=== PATIENT | male | born 1940 | race Caucasian/White ===

== ENCOUNTER → 2017-10-05 | Outpatient (CLI) | payer MEDICARE, BC ==
--- NOTE | 2017-10-05 13:19 | Diagnostic Imaging Report ---
PROCEDURE:L-SPINE COMPLETE COMPARISON:None. INDICATIONS:BILATERAL LOWER LEG PAIN FINDINGS: There are 5 nonrib-bearing lumbar-type vertebral bodies. No acute displaced fracture or subluxation. No pars interarticularis defects are identified on the oblique radiographs. Mild degenerative disc changes at L2-3 and L3-4, manifested by endplate sclerosis and marginal osteophytosis. The sacral foramina are intact superiorly. Inferiorly, the sacral body and coccyx are obscured by rectal gas and stool. The sacroiliac joints are intact. CONCLUSION: No acute osseous abnormality. Mild multilevel degenerative disc changes as above. Dictated by: Nain Bello M.D. on 10/05/2017 at 13:20 Electronically approved by: Nain Bello M.D. on 10/05/2017 at 13:20
== END ==
LOC: RAD 12:06
PROVIDERS: ATTEND Family Medicine
DX: M54.5 Low back pain (principal)
CPT/HCPCS: 72110

== ENCOUNTER 2019-08-26 09:55 | Emergency (ER) | payer MEDICARE, BC ==
[~2019-08-26] VITALS: Ht 185.4 cm; Wt 115.7 kg
--- OUTSIDE RECORDS SUMMARY | 2019-08-26 09:58 | XMS REPORT ---
Author Author [facility] Address Unknown Phone Unavailable Care Team Providers Care Mortgage Loan Officer Originator Name Role Phone KJ NOGUEIRA Unavailable Unavailable Payers Payer Name Policy Type Policy Number Effective Date Expiration Date Problems This patient has no known problems. Allergies, Adverse Reactions, Alerts Allergy Name Allergy Type Status Severity Reaction(s) Onset Date Inactive Date Treating Clinician Comments No Known Allergies DA Active U 2017-11-03 00:00:00 Medications This patient has no known medications. Results Test Description Test Time Test Comments Text Results Atomic Results Result Comments - MRI LW JNT W/O CONT RT 2019-06-17 08:17:00 Patient Name: TAM FAULKNER Unit No: [id number] EXAMS: CPT CODE: [id number] MRI LW JNT W/[place] [address] MRI OF THE RIGHT KNEE DIAGNOSIS: 1. Large radial tear of the posterior horn the medial meniscus. 2. Posterior cruciate ligament cyst and 5 mm anteromedial ganglion cyst adjacent to the tibial plateau. 3. Small joint effusion without evidence for a loose body. COMMENT: COMPARISON: No prior exams available. Scans were performed in the sagittal, axial and coronal planes utilizing T1, spin density with fat saturation and T2- weighted pulse sequences. No focal bony or hyaline cartilage lesions are seen. The posterior horn the medial meniscus is torn. The anterior horn the medial meniscus and the lateral meniscus are within normal. There is a cyst within the posterior cruciate ligament which extends longitudinally and then exits the ligament posteriorly at the distal end. The anterior cruciate and medial and lateral collateral ligaments are within normal limits in appearance. No abnormality of the quadriceps or patellar tendons is seen. at 0817 Reported and signed by: Eric Calhoun MD CC: Andres Contreras MD Technologist: Tess Valdez Transcribed D/ (0817) Cristina [facility] NAME: TAM FAULKNER [address] [facility] [place] PHYS: Andres Wasserman MD : 1940 AGE: 79 SEX: M [place] [id number] LOC: Y.MRI PHONE #: [phone] EXAM DATE: 06/15/2019 STATUS: DEP CLI FAX #: [phone] RAD #: D/C DT PAGE 1 Signed Report Patient Name: TAM FAULKNER Unit No: [id number] EXAMS: CPT CODE: [id number] MRI LW JNT W/[place] [address] <Continued> Orig Print D/T: S: 019 (08) [facility] NAME: TAM FAULKNER [address] [facility] [place] PHYS: Andres Wasserman MD : 1940 AGE: 79 SEX: M [place] [id number] LOC: Y.MRI PHONE #: [phone] EXAM DATE: 06/15/2019 STATUS: DEP CLI FAX #: [phone] RAD #: D/C DT PAGE 2 Signed Report SP LUMBAR, COMPLETE MIN 4VW [place] [address] Patient Name: TAM FAULKNER MR #: [id number] : 1940 Age/Sex: 77/M Req #: [id number] Adm Physician: Ordered by: KJ NOGUEIRA MD Report #: [id number] Location: RAD Room/Bed: Procedure: [id number] DX/SP LUMBAR, COMPLETE MIN 4VW Exam Date: 10/05/17 Exam Time: 1240 REPORT STATUS: Signed PROCEDURE: L-SPINE COMPLETE COMPARISON: None. INDICATIONS: BILATERAL LOWER LEG PAIN FINDINGS: There are 5 nonrib- bearing lumbar-type vertebral bodies. No acute displaced fracture or subluxation. No pars interarticularis defects are identified on the oblique radiographs. Mild degenerative disc changes at L2-3 and L3-4, manifested by endplate sclerosis and marginal osteophytosis. The sacral foramina are intact superiorly. Inferiorly, the sacral body and coccyx are obscured by rectal gas and stool. The sacroiliac joints are intact. CONCLUSION: No acute osseous abnormality. Mild multilevel degenerative disc changes as above. Dictated by: Terrence Antonio M.D. on 10/05/2017 at 13:20 Electronically approved by: Terrence Antonio M.D. on 10/05/2017 at 13:20 Dictated By: TERRENCE ANTONIO MD 1320 Transcribed By: FRANCISCO on 10/05/17 1320 COPY TO: KJ NOGUEIRA MD
[2019-08-26] MEDS ORDERED: LIDOCAINE 4% PATCH TP ONE (10:45)
[2019-08-26] MEDS ORDERED: HYDROCODONE/APAP 7.5MG-325MG 1 EA TAB PO ONE (10:45)
--- NOTE | 2019-08-26 12:16 | Diagnostic Imaging Report ---
EXAMINATION: RIBS UNILAT W/CXR INDICATION: Trauma COMPARISON: None FINDINGS: LINES/TUBES:None LUNGS:The lungs are well-inflated. No focal consolidation or pulmonary edema. Mild left basilar subsegmental atelectasis. PLEURA:No pleural effusion or pneumothorax. MEDIASTINUM:The cardiomediastinal silhouette appears normal in size and shape. BONES/SOFT TISSUES:No displaced rib fracture. ABDOMEN:No free air under the diaphragm. IMPRESSION: No displaced rib fracture. No focal pneumonia or pulmonary edema. Signed by: Sanjuana Arriaga MD on 08/26/2019 12:13 PM
== END 2019-08-26 12:51 | disposition home or self-care (01) ==
LOC: ER 09:55
DX: S20.221A Contusion of right back wall of thorax, initial encounter (principal); W22.09XA Striking against other stationary object, initial encounter; Y92.008 Other place in unspecified non-institutional (private) residence as the place of occurrence of the external cause; I48.91 Unspecified atrial fibrillation
CPT/HCPCS: 71101; 99283